=== PATIENT | male | born 1975 | race Asian ===

== ENCOUNTER 2019-03-28 15:51 | Outpatient (CLI) | payer OTHER | END 2019-03-28 22:47 | disposition home or self-care (01) | LOC: LABW 15:51 | DX: R68.89 Other general symptoms and signs (principal) | CPT/HCPCS: 87502 ==

== ENCOUNTER 2019-05-26 10:05 | Emergency (ER) | payer OTHER ==
[~2019-05-26] VITALS: Ht 175.3 cm; Wt 61.2 kg
[2019-05-26 10:17] VITALS: BP 103/71; TEMP 99.5
== END 2019-05-26 12:15 | disposition home or self-care (01) ==
LOC: ED 10:05
DX: J10.1 Influenza due to other identified influenza virus with other respiratory manifestations (principal)
CPT/HCPCS: 87502; 87651; 99283